=== PATIENT | male | born 1940 | race Caucasian/White ===

== ENCOUNTER 2017-12-07 09:17 | Day surgery (SDC) | payer MEDICARE, BC ==
[~2017-12-07 09:17] MED LIST: ACETAMINOPHEN 1,000 MG/100 ML BTL IV ONE; CLINDAMYCIN PHOS/D5W 900MG 900 MG/50 ML BAG IVPB ONE
[2017-12-07] MEDS ORDERED: *PACU ONLY* KETAMINE HCL 10 MG/ML (20ML) VIAL IV ONE (09:18)
[2017-12-07] MEDS ORDERED: SEVOFLURANE 250 ML INH ONE (09:18)
[2017-12-07] MEDS ORDERED: PROPOFOL 10 MG/ML VIAL IV ONE (09:18)
[2017-12-07] MEDS ORDERED: METHYLPREDNISOLONE 40MG/VIAL IM ONE (09:18)
[2017-12-07] MEDS ORDERED: MORPHINE SULFATE 5 MG/ML PFS IVP ONE (09:18)
[2017-12-07] MEDS ORDERED: BUPIVACAINE 0.5% (5MG/ML) PF 30ML VIAL IVP ONE (09:18)
[2017-12-07] MEDS ORDERED: KETOROLAC 30 MG/ML VIAL IVP ONE (09:18)
--- NOTE | 2017-12-07 22:04 | Operative Note ---
DATE: 12/07/2017 PREOPERATIVE DIAGNOSIS: INTERNAL DERANGEMENT LEFT KNEE. POSTOPERATIVE DIAGNOSES: 1. GRADE 3 CHONDROMALACIA PATELLA. 2. GRADE 3 CHONDROMALACIA MEDIAL [id number]. 3. COMPLEX SPLIT TEAR INVOLVING THE POSTERIOR HORN OF THE MEDIAL MENISCUS. 4. FRINGE TEAR INVOLVING THE ANTERIOR HORN OF THE LATERAL MENISCUS. PROCEDURE: LEFT KNEE ARTHROSCOPY WITH PARTIAL MEDIAL AND LATERAL MENISCECTOMIES. STAFF SURGEON: GLADYS SHIN M.D. ANESTHESIA: GENERAL. PREPARATION: CHLORAPREP. INDIVIDUAL CONSIDERATIONS: NONE. PROCEDURE: The patient was taken to the Operating Room and placed supine on the operating table. He had a successful induction with general anesthetic. His left lower extremity was prepped and draped in the usual fashion. The patient had a superior lateral inflow cannula placed. The skin was infiltrated with 0.5% Marcaine with Epinephrine prior. A clear effusion was drained and the knee was inflated with normal saline. An inferior medial and an inferior lateral portal were made in a similar fashion. The arthroscope was introduced through the inferior lateral portal up into the pouch. The patellofemoral compartment showed some grade 3 changes, no significant synovitis. The patella and notch were smoothed with a shaver. Medially, he had a complex split tear involving most of the posterior horn of the medial meniscus. It looks like he had a previous partial meniscectomy but there were large remnants which were unstable. This was debrided back removing basically all of it with basket forceps and a shaver. I left portions of the medial and anterior horns. There were some grade 3 changes posteriorly on the femur, which was smoothed and some cracking on the tibia that did not require debridement. In the notch, the cruciates were normal. Laterally, there was an anterior fringe tear, which was debrided back to a stable rim with a shaver. After irrigation, the portals were closed with ayden and 20 mL of 0.25% plain Marcaine along with 5 mg of Morphine and 40 mg of DepoMedrol were injected into the knee and a sterile Bulkee compressive dressing was applied. The patient tolerated the procedure well. Needle and sponge counts were correct. Estimated blood loss was minimal and he was taken back to Recovery in good condition. There were no complications. cc: Dr. Jarad Cunningham JOB NUMBER: [id number] [facility]
== END 2017-12-07 13:45 | disposition home or self-care (01) ==
LOC: SUR 09:17
PROVIDERS: ATTEND Orthopaedic Surgery
DX: S83.232A Complex tear of medial meniscus, current injury, left knee, initial encounter (principal); S83.282A Other tear of lateral meniscus, current injury, left knee, initial encounter; M22.42 Chondromalacia patellae, left knee; M94.262 Chondromalacia, left knee; E78.00 Pure hypercholesterolemia, unspecified; I10 Essential (primary) hypertension
CPT/HCPCS: 29880; 01400; J1885; J2270; J3490; J1030